=== PATIENT | male | born 1975 | race Caucasian/White ===

== ENCOUNTER 2020-03-15 16:29 | Emergency (ER) | payer SELFPAY ==
[~2020-03-15] VITALS: Ht 170.2 cm; Wt 80.1 kg
[2020-03-15 16:32] VITALS: BP 147/92
--- NOTE | 2020-03-15 18:10 | NUR ---
PT DISCHARGE WITHOUT MEDICATIONS, PT REFUSED TO WAIT FOR DC INSTRUCTIONS
== END 2020-03-15 18:12 | disposition home or self-care (01) ==
LOC: ED 18:06
DX: R21 Rash and other nonspecific skin eruption (principal); L73.8 Other specified follicular disorders
CPT/HCPCS: 99283